=== PATIENT | male | born 1965 | race Hispanic/Latino ===

== ENCOUNTER 2018-11-20 11:10 | Emergency (ER) | payer SELFPAY ==
[2018-11-20 11:28] VITALS: BP 112/73
--- NOTE | 2018-11-20 11:31 | Event Note ---
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 Further treatment and workup at subsequent clinical providers discretion. Patient/guardian urged not to elope from the ED as their condition may be serious if not clinically assessed and managed.
--- NOTE | 2018-11-20 11:32 | Emergency Department Report ---
ED Extremity Problem HPI - General Chief complaint: Skin/Abscess/Foreign Body Stated complaint: L ELBOW/FOREARM SWOLLEN Time Seen by Provider: 11/20/18 11:27 Source: patient Mode of arrival: Ambulatory Limitations: No Limitations - History of Present Illness Initial comments: pt is a 53 yo male who presents to the emergency room with c/o left elbow edema and pain that began yesterday. 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 He has been overusing his elbow. He denies any injury or trauma. He denies any fever. He denies every having this before. PMHx asthma, Hep C, no allergies to meds, +smoker - Related Data Previous Rx's Medication Instructions Recorded Last Taken Type Colchicine 0.6 mg PO DAILY 1 Days #3 capsule 11/20/18 Unknown Rx Naproxen [Naprosyn] 500 mg PO BID #14 tablet 11/20/18 Unknown Rx predniSONE [Deltasone] 40 mg PO QDAY 7 Days #14 tab 11/20/18 Unknown Rx Allergies Allergy/AdvReac Type Severity Reaction Status Date / Time No Known Allergies Allergy Unverified 11/20/18 11:12 ED Review of Systems ROS: Stated complaint: L ELBOW/FOREARM SWOLLEN Other details as noted in HPI Comment: All other systems reviewed and negative ED Past Medical Hx - Past Medical History Hx Asthma: Yes Additional medical history: ?Hep C - Surgical History Past Surgical History?: Yes Additional Surgical History: Hernia, facial - Social History Smoking Status: Current Every Day Smoker Substance Use Type: None - Medications Home Medications: Home Medications Medication Instructions Recorded Confirmed Last Taken Type Colchicine 0.6 mg PO DAILY 1 Days #3 capsule 11/20/18 Unknown Rx Naproxen [Naprosyn] 500 mg PO BID #14 tablet 11/20/18 Unknown Rx predniSONE [Deltasone] 40 mg PO QDAY 7 Days #14 tab 11/20/18 Unknown Rx ED Physical Exam - General Limitations: No Limitations General appearance: alert, in no apparent distress - Head Head exam: Present: atraumatic, normocephalic - Eye Eye exam: Present: normal appearance, PERRL - ENT ENT exam: Present: mucous membranes moist - Extremities Exam Extremities exam: Present: other (edema and TTP over the left olecranon process, small amount of erythema, FROM of the left elbow with no difficulty and no pain, neurovascularly intact ) - Neurological Exam Neurological exam: Present: alert, oriented X3 - Psychiatric Psychiatric exam: Present: normal affect, normal mood - Skin Skin exam: Present: warm, dry, intact ED Course Vital Signs 11/20/18 11:27 Temperature 97.9 F Pulse Rate 86 Respiratory 18 Rate Blood Pressure 112/73 O2 Sat by Pulse 95 Oximetry ED Medical Decision Making - Medical Decision Making pt is a 53 yo male who presents to the emergency room with c/o left elbow edema and pain that began yesterday. 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 He has been overusing his elbow. He denies any injury or trauma. He denies any fever. He denies every having this before. PMHx asthma, Hep C, no allergies to meds, +smoker. vitals are normal. on exam: edema and TTP over the left olecranon process, small amount of erythema, FROM of the left elbow with no difficulty and no pain, neurovascularly intact. examination consistent with gout vs olecranon bursitis. discussed these two findings with the patient. advised him that the treatment is similar. unlikely to be septic arthritis given full mobility with no difficulty and afebrile. pt given naproxen, prednisone, and colchicine. advised to take medications as prescribed. discussed to please follow up with a primary care doctor in the next 2-3 days for reevaluation and to make sure symptoms are improving. given list of community resources. return to the emergency room for any new or worsening symptoms. - Differential Diagnosis gout, olecranon bursitis, RA, septic joint, arthritis Critical care attestation.: If time is entered above; I have spent that time in minutes in the direct care of this critically ill patient, excluding procedure time. ED Disposition Clinical Impression: Left elbow pain Disposition: DC-01 TO HOME OR SELFCARE Is pt being admited?: No Does the pt Need Aspirin: No Condition: Stable Instructions: Elbow Bursitis (ED), Acute Gouty Arthritis (ED) Additional Instructions: please take medications as prescribed. please follow up with a primary care doctor in the next 2-3 days for reevaluation and to make sure symptoms are improving. given list of community resources. return to the emergency room for any new or worsening symptoms. Prescriptions: Colchicine 0.6 mg PO DAILY 1 Days #3 capsule predniSONE [Deltasone] 40 mg PO QDAY 7 Days #14 tab Naproxen [Naprosyn] 500 mg PO BID #14 tablet Referrals: [facility] [Outside] - 2-3 Days [facility] [Provider Group] - 2-3 Days [facility] [Outside] - 2-3 Days [facility] [Outside] - 2-3 Days Time of Disposition: 11:36 Print Language: OMANI
== END 2018-11-20 12:26 | disposition home or self-care (01) ==
LOC: ED 11:10
DX: M25.522 Pain in left elbow (principal); J45.909 Unspecified asthma, uncomplicated; F17.200 Nicotine dependence, unspecified, uncomplicated
CPT/HCPCS: 99282